=== PATIENT | female | born 1980 | race Caucasian/White ===

== ENCOUNTER 2019-10-30 13:10 | Emergency (ER) | payer OTHER ==
[2019-10-30] MEDS ORDERED: METHYLPREDNISOLONE 125 MG INJ ONE (13:43)
[2019-10-30] MEDS ORDERED: FAMOTIDINE 20 MG/2 ML VIAL IV ONE ×2 (13:44→16:19)
[2019-10-30] MEDS ORDERED: NA CHLORIDE 0.9% 1,000 ML ONE (13:44)
[2019-10-30] MEDS ORDERED: PANTOPRAZOLE 40 MG INJ ONE (13:44)
[2019-10-30] MEDS ORDERED: EPINEPHRINE/PF 1 MG/ML AMP ONE (13:46)
[2019-10-30] MEDS ORDERED: DIPHENHYDRAMINE 50 MG/ML VIAL ONE (14:26)
[2019-10-30] MEDS ORDERED: ONDANSETRON 4 MG/2 ML VIAL ONE (14:32)
--- NOTE | 2019-10-30 18:09 | ER ---
Nurse's Notes [facility] Name: Farzana Gillespie Age: 39 yrs Sex: Female : 1980 Arrival Date: 10/30/2019 Time: 13:17 Bed 15 Private MD: Diagnosis: Urticaria Presentation: 10/29 13:54 Anaphylaxis evaluation, the patient reports or I have noted the following symptoms ll1 which indicate a significant risk of anaphylaxis: urticaria chest pain lower throat pain. Initial Sepsis Screen: Does the patient meet any 2 criteria? HR > 90 bpm. No. Patient's initial sepsis screen is negative. Risk Assessment: Do you want to hurt yourself or someone else? Patient reports no desire to harm self or others. Onset of symptoms was October 29, 2019. 13:54 Acuity: RENA 2 ll1 13:56 Chief complaint: Patient states: Hives/rash since noon yesterday. Slight pain to lower ll1 throat area. No SOB at this time. Unknown exposure. Coronavirus screen: Proceed with normal triage. Patient denies a cough. Patient denies shortness of breath or difficulty breathing. Patient denies measured and/or subjective temperature greater than 100.4F prior to today's visit. Patient denies travel on a cruise ship or to a country the [facility] currently lists as an affected area. Patient denies contact with known and/or suspected case of COVID-19. Ebola Screen: Patient denies travel to an Ebola-affected area in the 21 days before illness onset. Onset: The symptoms/episode began/occurred yesterday. Initial Sepsis Screen: Does the patient have a suspected source of infection? No. Patient's initial sepsis screen is negative. 13:56 Method Of Arrival: Ambulatory ll1 13:56 Chief complaint: Patient states: Hives to entire body that began yesterday, swelling ph noted to eyes and face, also reports chest tightness and throat pain, mildly SOB, unknown trigger, states, " I was at [employer] w/ a friend and all of a sudden my back started itching and then I started having hives on my neck," Seen by PCP this am and given steroid shot but did not relieve symptoms. 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 - Social history:: Smoking status: Patient reports the use of cigarette tobacco products, denies chronic smoking, but will smoke occasionally, Smoking status: . Screenin:53 Abuse screen: Denies threats or abuse. Nutritional screening: No deficits noted. ll1 Tuberculosis screening: No symptoms or risk factors identified. Fall Risk None identified. IV access (20 points). Total Ross Fall Scale indicates No Risk (0-24 pts). Assessment: 13:52 General: Appears uncomfortable, Behavior is calm, cooperative. Pain: Denies pain. ll1 Neuro: No deficits noted. Cardiovascular: No deficits noted. Respiratory: No deficits noted. Airway is patent Trachea midline Respiratory effort is even, unlabored, Respiratory pattern is regular, symmetrical, Breath sounds are clear bilaterally. Denies cough, shortness of breath labored breathing. GI: No deficits noted. : No deficits noted. Derm: Rash noted that is raised, urticaria, on all over, generalized Reports hives/rash since noon yesterday. 15:00 Reassessment: No changes from previously documented assessment. Patient and/or family ll1 updated on plan of care and expected duration. Pain level reassessed. Patient is alert, oriented x 3, equal unlabored respirations, skin warm/dry/pink. 16:00 Reassessment: No changes from previously documented assessment. Patient and/or family ll1 updated on plan of care and expected duration. Pain level reassessed. Patient is alert, oriented x 3, equal unlabored respirations, skin warm/dry/pink. 17:00 Reassessment: No changes from previously documented assessment. Patient and/or family ll1 updated on plan of care and expected duration. Pain level reassessed. Patient is alert, oriented x 3, equal unlabored respirations, skin warm/dry/pink. Chest tightness feels better. Rash to face and arms has decreased slightly. 18:05 Reassessment: No changes from previously documented assessment. Patient and/or family ll1 updated on plan of care and expected duration. Pain level reassessed. Patient is alert, oriented x 3, equal unlabored respirations, skin warm/dry/pink. Vital Signs: 13:56 BP 150 / 105; Pulse 112; Resp 19; Pulse Ox 100% ; Pain 0/10; ll1 14:17 BP 155 / 96; Pulse 88; Resp 18; Temp 98.0; Pulse Ox 100% on R/A; ll1 15:27 BP 150 / 97; Pulse 96; Resp 18; Pulse Ox 99% ; ll1 16:37 BP 125 / 86; Pulse 90; Resp 17; Pulse Ox 100% ; ll1 18:02 BP 136 / 88; Pulse 94; Resp 17; Pulse Ox 99% ; ll1 18:24 BP 135 / 86; Pulse 95; Resp 17; Pulse Ox 99% ; Pain 0/10; ll1 ED Course: 13:17 Patient arrived in ED. am2 13:25 Skip Irvin MD is Attending Physician. ps1 13:38 Adriana Byrd RN is Primary Nurse. ll1 13:40 Inserted saline lock: 20 gauge in right antecubital area, using aseptic technique. ll1 Blood collected. 13:55 Triage completed. ll1 13:55 Arm band placed on Patient placed in an exam room, on a stretcher. ll1 13:56 Patient has correct armband on for positive identification. Bed in low position. Call ll1 light in reach. Side rails up X 1. first line supervisor on. Pulse ox on. NIBP on. 18:24 IV discontinued, intact, bleeding controlled, No redness/swelling at site. Pressure ll1 dressing applied. 18:25 No provider procedures requiring assistance completed. ll1 Administered Medications: 13:50 Drug: NS 0.9% 1000 ml Route: IV; Rate: 1 bolus; Site: right antecubital; ll1 15:00 Follow up: Response: No adverse reaction; IV Status: Completed infusion; IV Intake: ll1 1000ml 13:51 Drug: EPINEPHrine 1mg/mL 1:1,000 0.3 ml Route: Sub-Q; Site: right thigh; ll1 15:18 Follow up: Response: No adverse reaction; Other; RASS: Drowsy (-1); Rash is getting ll1 slightly better. States her chest no longer hurts. Feels like her upper lip size is decreasing. 13:51 Drug: SOLU-Medrol 125 mg Route: IVP; Site: right antecubital; 1 15:18 Follow up: Response: No adverse reaction; RASS: Drowsy (-1) 1 13:51 Drug: Pepcid 10 mg Route: IVP; Site: right antecubital; ll1 14:32 Follow up: Response: No adverse reaction; RASS: Drowsy (-1) 1 13:51 Drug: ProTONIX 40 mg Route: IVP; Site: right antecubital; ll1 14:32 Follow up: Response: No adverse reaction; RASS: Drowsy (-1) 1 14:31 Drug: Benadryl 50 mg Route: IVP; Site: right antecubital; ll1 15:17 Follow up: Response: No adverse reaction; RASS: Drowsy (-1) 1 14:32 Drug: Zofran (Ondansetron) 4 mg Route: IVP; Site: right antecubital; 1 15:17 Follow up: Response: No adverse reaction; RASS: Drowsy (-1) 1 16:23 Drug: Pepcid 20 mg Route: IVP; Site: right antecubital; 1 17:35 Follow up: Response: No adverse reaction; RASS: Drowsy (-1) [facility] Intake: 15:00 IV: 1000ml; Total: 1000ml. 1 Outcome: 18:08 Discharge ordered by . ps1 18:25 Discharged to home ambulatory. ll1 18:25 Condition: stable 18:25 Discharge instructions given to patient, Instructed on discharge instructions, follow up and referral plans. medication usage, Demonstrated understanding of instructions, follow-up care, medications, Prescriptions given X 4. 18:27 Patient left the ED. 1 Signatures: Patti Benites RN RN Michelle Luis am2 Skip Irvin MD MD ps1 Adriana Byrd RN RN ll1 Corrections: (The following items were deleted from the chart) 17:36 14:17 BP 155 / 96; Pulse 88bpm; Resp 18bpm; Pulse Ox 100% RA; ll1 ll1
--- NOTE | 2019-10-30 18:09 | EDPHYS ---
Physician Documentation [facility] Name: Farzana Gillespie Age: 39 yrs Sex: Female : 1980 Arrival Date: 10/30/2019 Time: 13:17 Bed 15 Private MD: ED Physician Skip Irvin HPI: 10/29 14:20 This 39 yrs old Female presents to ER via Ambulatory with complaints of ps1 Hives, Sore Throat. 14:20 patient has no history of allergies and now presenting with global urticaria and sore ps1 throat and chest tightness. No known trigger. Went to Drs office and got a steroid shot and symptoms did not improve. Normal O2 sats. No uvular hydrops. 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 - Social history:: Smoking status: Patient reports the use of cigarette tobacco products, denies chronic smoking, but will smoke occasionally, Smoking status: . ROS: 14:20 Constitutional: Negative for fever, chills, and weight loss, Eyes: Negative for injury, ps1 pain, redness, and discharge, Cardiovascular: Negative for chest pain, palpitations, and edema, Abdomen/GI: Negative for abdominal pain, nausea, vomiting, diarrhea, and constipation, MS/Extremity: Negative for injury and deformity, Psych: Negative for depression, anxiety, suicide ideation, homicidal ideation, and hallucinations. 14:20 Respiratory: Positive for shortness of breath, wheezing. Exam: 14:34 Constitutional: This is a well developed, well nourished patient who is awake, alert, ps1 and in no acute distress. Head/Face: Normocephalic, atraumatic. Eyes: Pupils equal round and reactive to light, extra-ocular motions intact. Lids and lashes normal. Conjunctiva and sclera are non-icteric and not injected. ENT: Nares patent. No nasal discharge, no septal abnormalities noted. Tympanic membranes are normal and external auditory canals are clear. Oropharynx with no redness, swelling, or masses, exudates, or evidence of obstruction, uvula midline. Mucous membranes moist. 14:34 Cardiovascular: Rate: normal, Rhythm: regular. 14:34 Respiratory: the patient does not display signs of respiratory distress, Respirations: normal. 14:34 Abdomen/GI: Inspection: abdomen appears normal. 14:34 Skin: urticaria. Vital Signs: 13:56 BP 150 / 105; Pulse 112; Resp 19; Pulse Ox 100% ; Pain 0/10; ll1 14:17 BP 155 / 96; Pulse 88; Resp 18; Temp 98.0; Pulse Ox 100% on R/A; ll1 15:27 BP 150 / 97; Pulse 96; Resp 18; Pulse Ox 99% ; ll1 16:37 BP 125 / 86; Pulse 90; Resp 17; Pulse Ox 100% ; ll1 18:02 BP 136 / 88; Pulse 94; Resp 17; Pulse Ox 99% ; ll1 18:24 BP 135 / 86; Pulse 95; Resp 17; Pulse Ox 99% ; Pain 0/10; ll1 MDM: 14:39 Patient medically screened. ps1 18:10 Data reviewed: vital signs, nurses notes, and as a result, I will discharge patient. ps1 Counseling: I had a detailed discussion with the patient and/or guardian regarding: the historical points, exam findings, and any diagnostic results supporting the discharge/admit diagnosis, to return to the emergency department if symptoms worsen or persist or if there are any questions or concerns that arise at home. ED course: Multiple reevaluations in the emergency department demonstrated improvement in clinical course with improvement in urticaria. No airway issues and patient feels better. Will rx 2 epi pens as well as Benadryl, Protonix, Medrol dose pack. Return precautions given. . Administered Medications: 13:50 Drug: NS 0.9% 1000 ml Route: IV; Rate: 1 bolus; Site: right antecubital; ll1 15:00 Follow up: Response: No adverse reaction; IV Status: Completed infusion; IV Intake: ll1 1000ml 13:51 Drug: EPINEPHrine 1mg/mL 1:1,000 0.3 ml Route: Sub-Q; Site: right thigh; ll1 15:18 Follow up: Response: No adverse reaction; Other; RASS: Drowsy (-1); Rash is getting ll1 slightly better. States her chest no longer hurts. Feels like her upper lip size is decreasing. 13:51 Drug: SOLU-Medrol 125 mg Route: IVP; Site: right antecubital; ll1 15:18 Follow up: Response: No adverse reaction; RASS: Drowsy (-1) ll1 13:51 Drug: Pepcid 10 mg Route: IVP; Site: right antecubital; ll1 14:32 Follow up: Response: No adverse reaction; RASS: Drowsy (-1) ll1 13:51 Drug: ProTONIX 40 mg Route: IVP; Site: right antecubital; ll1 14:32 Follow up: Response: No adverse reaction; RASS: Drowsy (-1) ll1 14:31 Drug: Benadryl 50 mg Route: IVP; Site: right antecubital; ll1 15:17 Follow up: Response: No adverse reaction; RASS: Drowsy (-1) ll1 14:32 Drug: Zofran (Ondansetron) 4 mg Route: IVP; Site: right antecubital; ll1 15:17 Follow up: Response: No adverse reaction; RASS: Drowsy (-1) ll1 16:23 Drug: Pepcid 20 mg Route: IVP; Site: right antecubital; ll1 17:35 Follow up: Response: No adverse reaction; RASS: Drowsy (-1) ll1 Disposition: 10/30/19 18:08 Discharged to Home. Impression: Urticaria. - Condition is Stable. - Discharge Instructions: Anaphylactic Reaction, [id number]. - Prescriptions for Benadryl 25 mg Oral Capsule - take 1 capsule by ORAL route every 6 hours As needed; 30 tablet. Protonix 40 mg Oral Tablet - take 1 tablet by ORAL route once daily; 30 tablet. Medrol (Vishal) 4 mg Oral Tablets, Dose Pack - take 1 tablet by ORAL route as directed - follow package instructions; 1 packet. EpiPen 0.3 mg Injection auto- injector - inject 1 pen by INTRAMUSCULAR route as needed Inject into the outer portion of the thigh, through clothing if necessary. Indicated in the emergency treatment of allergic reactions; 2 Each. - Medication Reconciliation Form, Thank You Letter, Antibiotic Education, Prescription Opioid Use form. - Follow up: Emergency Department; When: As needed; Reason: Trouble breathing, Worsening of condition. - Problem is new. - Symptoms have improved. Signatures: Patti Benites, RN RN ph Skip Irvin MD MD ps1 Adriana Byrd RN RN ll1 Corrections: (The following items were deleted from the chart) 18:27 18:08 10/30/2019 18:08 Discharged to Home. Impression: Urticaria. Condition is Stable. ll1 Forms are Medication Reconciliation Form, Thank You Letter, Antibiotic Education, Prescription Opioid Use. Follow up: Emergency Department; When: As needed; Reason: Trouble breathing, Worsening of condition. Problem is new. Symptoms have improved. ps1
[2019-10-30 18:44] VITALS: TEMP 98
[2019-10-30 18:48] VITALS: O2SAT 99
[2019-10-30 18:49] VITALS: BP 135/86
== END 2019-10-30 18:27 | disposition home or self-care (01) ==
LOC: ER 13:10
DX: L50.9 Urticaria, unspecified (principal); I10 Essential (primary) hypertension; Z98.82 Breast implant status; Z72.0 Tobacco use
CPT/HCPCS: 96361; 96375; 96372; 96374; 99284; J0171; J1200; C9113; J7030; J2930; J2405